=== PATIENT | male | born 1985 | race Hispanic/Latino ===

== ENCOUNTER 2019-02-23 22:13 | Emergency (ER) | payer OTHER ==
[2019-02-23] MEDS ORDERED: ONDANSETRON HCL 4 MG/2 ML VIAL ONE (22:40)
[2019-02-23] MEDS ORDERED: MORPHINE SULFATE 4 MG/1ML SYG ONE (22:40)
[2019-02-23 23:07] LABS: PLATELET COUNT (AUTO) 229 K/uL (130-400)
[2019-02-23 23:21] LABS: BILIRUBIN,TOTAL 0.3 mg/dL (0.2-1.0)
[2019-02-23] MEDS ORDERED: IOHEXOL-350 50ML VIAL IV ONE (23:26)
[2019-02-23] MEDS ORDERED: CLINDAMYCIN 600 MG/D5% WATER 50 ML IV ONE (23:32)
[2019-02-23 23:39] LABS: BASOPHILS % (AUTO) 0.8 % (0.0-5.0); EOSINOPHILS % (AUTO) 2.1 % (0.0-8.0); LYMPHOCYTES % (AUTO) 15.8 % (21.0-51.0); MEAN CORPUSCULAR HEMOGLOBIN 29.7 pg (27.0-33.0); MEAN CORPUSCULAR HGB CONC 34.8 g/dL (32.0-36.0); MEAN CORPUSCULAR VOLUME 85.1 fL (79-99); MONOCYTES % (AUTO) 6.3 % (3.0-13.0); RED BLOOD CELL COUNT(AUTO) 5.16 MIL/uL (4.50-6.20); RED CELL DISTRIBUTION WIDTH 13.7 % (11.0-15.5); WHITE BLOOD COUNT (AUTO) 10.5 K/uL (4.8-10.8)
[2019-02-24] MEDS ORDERED: MORPHINE SULFATE 4 MG/1ML SYG ONE (00:37)
[2019-02-24] MEDS ORDERED: DEXAMETHASONE SOD PHOSPHATE 10MG/ML 1ML VIAL ONE (01:31)
[2019-02-24] MEDS ORDERED: ACETAMINOPHEN-CODEINE 300/30MG TAB ONE (02:01)
== END 2019-02-24 02:06 | disposition home or self-care (01) ==
LOC: EDH 22:13
DX: J02.9 Acute pharyngitis, unspecified (principal); R22.0 Localized swelling, mass and lump, head; Z90.49 Acquired absence of other specified parts of digestive tract
CPT/HCPCS: 36415; 70491; 80053; 85025; 87040 ×2; 96365; 96366; 96375 ×2; 96376; 99285; J1100; J2270 ×2; J2405; J3490; Q9967

== ENCOUNTER 2019-02-26 17:34 | Emergency (ER) | payer OTHER ==
[2019-02-26] MEDS ORDERED: SODIUM CHLORIDE 0.9% 1000ML 1,000 ML IV ONE ×2 (18:29→19:33)
[2019-02-26 18:38] LABS: BASOPHILS % (AUTO) 0.8 % (0.0-5.0); HEMATOCRIT 45.6 % (42-54); LYMPHOCYTES % (AUTO) 13.7 % (21.0-51.0); MEAN CORPUSCULAR HGB CONC 34.2 g/dL (32.0-36.0); MEAN CORPUSCULAR VOLUME 84.8 fL (79-99); MONOCYTES % (AUTO) 10.7 % (3.0-13.0); NEUTROPHILS % (AUTO) 73.8 % (40.0-77.0); PLATELET COUNT (AUTO) 254 K/uL (130-400); RED BLOOD CELL COUNT(AUTO) 5.37 MIL/uL (4.50-6.20); RED CELL DISTRIBUTION WIDTH 13.2 % (11.0-15.5); WHITE BLOOD COUNT (AUTO) 11.4 K/uL (4.8-10.8)
[2019-02-26 18:59] LABS: CREATININE 0.9 mg/dL (0.5-1.5); POTASSIUM 3.8 mmol/L (3.5-5.1); RAPID GROUP A STREP NEGATIVE (NEGATIVE)
[2019-02-26 19:04] LABS: ALBUMIN 3.8 g/dL (3.5-5.0); BILIRUBIN,TOTAL 1.3 mg/dL (0.2-1.0); TOTAL PROTEIN, SERUM 8.4 g/dL (6.0-8.3)
[2019-02-26 19:19] LABS: APPEARANCE,URINE Clear (CLEAR); BILIRUBIN,URINE Negative (NEGATIVE); COLOR,URINE Yellow (YELLOW); GLUCOSE, URINE (UA) Negative (NEGATIVE); KETONES,URINE 40 mg/dL (NEGATIVE); LEUKOCYTE ESTERASE ,URINE Negative (NEGATIVE); NITRATE,URINE Negative (NEGATIVE); OCCULT BLOOD,URINE Negative (NEGATIVE); PROTEIN,URINE Negative (NEGATIVE)
[2019-02-26] MEDS ORDERED: KETOROLAC TROMETHAMINE 30MG/ML ONE (19:33)
[2019-02-26] MEDS ORDERED: DiphenhydrAMINE HCL 50 MG/ML VIAL ONE (19:33)
[2019-02-26] MEDS ORDERED: METRONIDAZOLE 500 MG TABLET ONE (20:17)
[2019-02-26] MEDS ORDERED: METHYLPREDNISOLONE SOD SUCC 125MG/2ML VIAL ONE (20:18)
[2019-02-26] MEDS ORDERED: PENICILLIN V POTASSIUM 500 MG TABLET ONE (20:18)
== END 2019-02-26 21:44 | disposition home or self-care (01) ==
LOC: EDH 17:34
DX: J03.90 Acute tonsillitis, unspecified (principal); R09.81 Nasal congestion; Z90.49 Acquired absence of other specified parts of digestive tract; Z79.899 Other long term (current) drug therapy; Z87.891 Personal history of nicotine dependence
CPT/HCPCS: 36415; 70490; 80053; 81003; 83605; 85025; 86308; 87040 ×2; 87804 ×2; 87880; 96374; 96375; 99285; J1200; J1885; J2930; J7030 ×2

== ENCOUNTER 2022-05-29 00:49 | Emergency (ER) | payer BC, OTHER ==
[~2022-05-29] VITALS: Ht 175.3 cm; Wt 113.4 kg
[2022-05-29] MEDS ORDERED: ONDANSETRON 4MG INJ IVP ONE (01:00)
[2022-05-29] MEDS ORDERED: 0.9%NACL 1000ML 1,000 ML IV SCH (01:00)
[2022-05-29 01:11] LABS: BASOPHILS % (AUTO) 0.5 % (0.0-5.0); EOSINOPHILS % (AUTO) 0.3 % (0.0-8.0); HEMATOCRIT 46.5 % (42-54); LYMPHOCYTES % (AUTO) 7.7 % (21.0-51.0); MEAN CORPUSCULAR HEMOGLOBIN 27.8 pg (27.0-33.0); MEAN CORPUSCULAR HGB CONC 33.8 g/dL (32.0-36.0); MEAN CORPUSCULAR VOLUME 82.3 fL (79-99); MONOCYTES % (AUTO) 4.7 % (3.0-13.0); NEUTROPHILS % (AUTO) 86.4 % (40.0-77.0); PLATELET COUNT (AUTO) 277 K/uL (130-400); RED BLOOD CELL COUNT(AUTO) 5.65 MIL/uL (4.50-6.20); RED CELL DISTRIBUTION WIDTH 13.1 % (11.0-15.5); WHITE BLOOD COUNT (AUTO) 10.7 K/uL (4.8-10.8)
[2022-05-29 01:14] LABS: APPEARANCE,URINE CLEAR (CLEAR); BILIRUBIN,URINE NEGATIVE (NEGATIVE); COLOR,URINE YELLOW (YELLOW); GLUCOSE, URINE (UA) NEGATIVE (NEGATIVE); KETONES,URINE NEGATIVE (NEGATIVE); LEUKOCYTE ESTERASE ,URINE NEGATIVE Leu/uL (NEGATIVE); NITRATE,URINE NEGATIVE (NEGATIVE); OCCULT BLOOD,URINE NEGATIVE (NEGATIVE); PH,URINE 5.5 (5.0-8.0); PROTEIN,URINE 20 mg/dL (NEGATIVE); UROBILINOGEN,URINE 0.2 mg/dL (0.2-1.0)
[2022-05-29 01:20] LABS: CREATININE 1.1 mg/dL (0.5-1.5)
[2022-05-29 01:24] LABS: ALBUMIN 4.3 g/dL (3.5-5.0); TOTAL PROTEIN, SERUM 8.4 g/dL (6.0-8.3)
[2022-05-29 01:28] LABS: MUCUS,URINE MANY LPF (None Seen); RBC,URINE 0-1 /HPF (0-1); SQUAMOUS EPITHELIAL CELL,UR RARE /HPF (0-2)
[2022-05-29] MEDS ORDERED: 0.9%NACL 1000ML 1,000 ML IV ONE (02:00)
[2022-05-29] MEDS ORDERED: KETOROLAC 30MG VIAL (30MG/ML) IVP ONE (02:00)
[2022-05-29] MEDS ORDERED: FAMOTIDINE 20MG VIAL IV ONE (02:00)
[2022-05-29] MEDS ORDERED: HYOSCYAMINE SULFATE 0.125 MG TAB.SUBL SL SCH (02:00)
[2022-05-29 02:59] VITALS: BP 115/75
[2022-05-29] MEDS ORDERED: ONDA4TAB10 PO (03:29)
== END 2022-05-29 03:35 | disposition home or self-care (01) ==
LOC: EDH 00:49
DX: K52.9 Noninfective gastroenteritis and colitis, unspecified (principal); E86.0 Dehydration; Z90.49 Acquired absence of other specified parts of digestive tract; Z98.890 Other specified postprocedural states
CPT/HCPCS: 99284; 96374; 96361; 96375; 80053; 83690; 85025; 81001; 36415; J3490; J7030; J2405; J1885

== ENCOUNTER 2023-01-03 01:13 | Emergency (ER) | payer OTHER, BC ==
[~2023-01-03] VITALS: Ht 177.8 cm; Wt 108.9 kg
[~2023-01-03 01:13] MED LIST: ONDA4TAB10 PO
[2023-01-03] MEDS ORDERED: ONDANSETRON 4MG INJ ONE (01:25)
[2023-01-03] MEDS ORDERED: ACETAMINOPHEN 325 MG TAB ONE (01:26)
[2023-01-03] MEDS ORDERED: 0.9%NACL 1000ML 1,000 ML IV ONE (01:30)
[2023-01-03] MEDS ORDERED: ACETAMINOPHEN 325 MG TAB PO ONE (01:30)
[2023-01-03] MEDS ORDERED: ONDANSETRON 4MG INJ IVP ONE (01:30)
[2023-01-03 01:49] LABS: BASOPHILS # (AUTO) 0.06 K/uL (0.00-0.20); BASOPHILS % (AUTO) 0.6 % (0.0-5.0); EOSINOPHILS # (AUTO) 0.06 K/uL (0.00-0.70); EOSINOPHILS % (AUTO) 0.6 % (0.0-8.0); HEMATOCRIT 44.3 % (42-54); IMMATURE GRANULOCYTE ABSOLUTE 0.04 K/uL (0-1); LYMPHOCYTES # (AUTO) 0.9 K/uL (1.0-4.8); LYMPHOCYTES % (AUTO) 8.1 % (21.0-51.0); MEAN CORPUSCULAR HEMOGLOBIN 28.3 pg (27.0-33.0); MEAN CORPUSCULAR HGB CONC 33.9 g/dL (32.0-36.0); MEAN CORPUSCULAR VOLUME 83.6 fL (79-99); MONOCYTES # (AUTO) 0.9 K/uL (0.1-1.0); MONOCYTES % (AUTO) 8.2 % (3.0-13.0); NEUTROPHILS # (AUTO) 8.8 K/uL (1.8-7.7); NEUTROPHILS % (AUTO) 82.1 % (40.0-77.0); PLATELET COUNT (AUTO) 257 K/uL (130-400); WHITE BLOOD COUNT (AUTO) 10.7 K/uL (4.8-10.8)
[2023-01-03 01:51] LABS: APPEARANCE,URINE CLEAR (CLEAR); BILIRUBIN,URINE NEGATIVE (NEGATIVE); COLOR,URINE YELLOW (YELLOW); GLUCOSE, URINE (UA) NEGATIVE (NEGATIVE); KETONES,URINE NEGATIVE (NEGATIVE); LEUKOCYTE ESTERASE ,URINE NEGATIVE Leu/uL (NEGATIVE); NITRATE,URINE NEGATIVE (NEGATIVE); OCCULT BLOOD,URINE NEGATIVE (NEGATIVE); PH,URINE 5.5 (5.0-8.0); PROTEIN,URINE NEGATIVE (NEGATIVE)
[2023-01-03 01:52] LABS: ADD UA MICROSCOPIC NO
[2023-01-03 02:00] LABS: CREATININE 0.8 mg/dL (0.5-1.5); POTASSIUM 3.9 mmol/L (3.5-5.1)
[2023-01-03 02:06] LABS: BILIRUBIN,TOTAL 0.3 mg/dL (0.2-1.0); TOTAL PROTEIN, SERUM 7.9 g/dL (6.0-8.3)
[2023-01-03 02:10] VITALS: TEMP 98.9
[2023-01-03 02:10] LABS: WBC MORPHOLOGY CONSISTENT W/DIFF
[2023-01-03 02:50] LABS: SARS-CoV-2, RNA, NAAT NEGATIVE SARS CoV-2 (NEGATIVE)
[2023-01-03 02:54] LABS: INFLUENZA TYPE A Negative For Type A (NEGATIVE); INFLUENZA TYPE B Negative For Type B (NEGATIVE)
[2023-01-03] MEDS ORDERED: PANTOPRAZOLE 40 MG/VIAL IVP ONE (04:00)
[2023-01-03] MEDS ORDERED: IOHEXOL 350 MG/ML 100ML INFUS..BTL IV ONE (04:04)
[2023-01-03 05:27] VITALS: BP 113/61; PULSE 72; RESP 16; O2SAT 100
[2023-01-03] MEDS ORDERED: IBUP-2070 PO (06:15)
[2023-01-03] MEDS ORDERED: FAMO-136 PO (06:15)
== END 2023-01-03 06:26 | disposition home or self-care (01) ==
LOC: EDH 01:13
DX: B34.9 Viral infection, unspecified (principal); R50.9 Fever, unspecified; R10.13 Epigastric pain; Z20.822 Contact with and (suspected) exposure to COVID-19; Z90.49 Acquired absence of other specified parts of digestive tract; Z98.890 Other specified postprocedural states
CPT/HCPCS: 99285; 74177; 96374; 71045; 87635; 96361; 96375; 84484; 80053; 83690; 85025; 87040 ×2; 87804 ×2; 83605; 81003; 36415; 93005 ×2; C9803; J2405; C9113; Q9967